=== PATIENT | female | born 1965 | race Caucasian/White ===

== ENCOUNTER 2018-01-11 12:16 | Day surgery (SDC) | payer MEDICAID ==
[2016-06-25 07:35] VITALS: BMI 32.5
[2018-01-11] MEDS ORDERED: Ciprofloxacin 400mg/200ml D5W 400 MG/200 ML BAG IVPB ONE (12:53)
[2018-01-11] MEDS ORDERED: Iohexol 240 (50 ml) ONE (12:54)
[2018-01-11] MEDS ORDERED: Propofol 10 mg/ml Inj (20 ML) ONE (13:56)
[2018-01-11] MEDS ORDERED: Midazolam 2 MG/2 ML VIAL ONE (13:56)
[2018-01-11] MEDS ORDERED: HYDROmorphone 0.5 mg/0.5 ml ISec IVP PRN (14:34)
[2018-01-11 16:17] VITALS: O2SAT 100
[2018-01-11 17:14] VITALS: BP 142/76; PULSE 81; RESP 18; TEMP 97.6
--- NOTE | 2018-01-12 07:58 | RAD ---
Date of service: 01/11/2018 HISTORY: HEMATURIA COMPARISON: No prior. FINDINGS: BOWEL: No bowel obstruction. Moderate stool retention. Cannula possible cystoscope projects over the pubic symphysis. Bilateral hemipelvic calcifications phleboliths inferred. Left hemipelvic surgical clips. Probable lumbar spinal fusion potential disc spacers lumbosacral junction. No lateral view or prior views for clarification available. BONES: Hardware lumbosacral level. Right SI joint sclerotic arthrosis -mild OTHER FINDINGS: Left upper outer quadrant hyperdensities indeterminate bowel contents possible. Extensive anterior rib calcifications another consideration Bowel contents favored. IMPRESSION: The left upper outer quadrant hyperdensities are probably related to bowel contents tender due to left rib benign costo cartilaginous calcifications. . Moderate stool retention Moderate stool retention. Other findings as above.
--- NOTE | 2018-01-12 07:59 | RAD ---
PROCEDURE: HISTORY: As Above COMPARISON: None TECHNIQUE: Total fluoroscopic time utilized during the procedure: 11.0 seconds. Total dose 0.37929 mGy cm squared FINDINGS: Submitted images from the current procedure: 3 Please refer to the physician's notes performing the procedure. IMPRESSION: Less than 1 hour fluoroscopic time utilized during performance of the procedure
--- NOTE | 2018-01-12 08:08 | OP ---
Copied To: Fabiola Clay MD Attending MD: Fabiola Clay MD PROCEDURE DATE: 01/11/2018 PREOPERATIVE DIAGNOSES: Urgency, frequency, dysuria, and hematuria. POSTOPERATIVE DIAGNOSES: Severe meatal stenosis, hematuria, and question of interstitial cystitis. PROCEDURES: Cystoscopy and dilatation, bilateral retrograde. SURGEON: Fabiola Clay MD DESCRIPTION OF PROCEDURE: While the patient in lithotomy position after starting anesthesia, genitalia were prepped and draped in a sterile fashion. The patient was given 400 mg of Cipro. Pelvic exam revealed no evidence of any cystocele. There was severe meatal stenosis. Could not be dilated until we started with #8 [place] to dilate gradually to go up to #28. After that, cystoscopy was performed which revealed no tumor in the bladder and no stone. Trabeculated bladder 2+ and when the bladder distended, the mucosa started to be reddish like we see in the interstitial cystitis. Dome, lateral wall within normal limits. The orifice seen in the right position in the trigone. Bilateral retrograde revealed small defect on the right kidney could be small stone, but no evidence of any tumor. Ureter within normal limits. The patient tolerated the procedure well and transferred to the recovery room in stable condition. Fabiola Clay MD
== END 2018-01-11 17:18 | disposition home or self-care (01) ==
LOC: C.SDS 12:16
PROVIDERS: ATTEND Specialist
DX: N35.9 Urethral stricture, unspecified (principal); R30.0 Dysuria; R39.15 Urgency of urination; N30.11 Interstitial cystitis (chronic) with hematuria
CPT/HCPCS: 52281; 74018; 82948; J0744